=== PATIENT | male | born 1990 | race Asian ===

== ENCOUNTER 2017-05-14 15:17 | Outpatient (CLI) | payer MEDICAID ==
[2017-05-14 19:13] LABS: BASOPHILS % (AUTO) 0.4 %; EOSINOPHILS # (AUTO) 0.2 10^3/uL (0.0-0.7); EOSINOPHILS % (AUTO) 1.6 %; HGB - HEMOGLOBIN 14.4 g/dL (14.0-18.0); LYMPHOCYTES # (AUTO) 2.2 10^3/uL (1.5-3.5); LYMPHOCYTES % (AUTO) 19.8 %; MEAN CORPUSCULAR HEMOGLOBIN 30.2 pg (27.0-31.0); MEAN CORPUSCULAR HGB CONC 32.1 g/dL (32.0-36.0); MEAN PLATELET VOLUME 9.2 fL (7.4-11.4); MONOCYTES # (AUTO) 0.9 10^3/uL (0.0-1.0); MONOCYTES % (AUTO) 7.8 %; NEUTROPHILS # (AUTO) 7.8 10^3/uL (1.5-6.6); NEUTROPHILS % (AUTO) 70.4 %; RED BLOOD COUNT 4.79 10^6/uL (4.70-6.10); RED CELL DISTRIBUTION WIDTH 12.4 % (12.0-15.0); UNCORRECTED WHITE BLOOD COUNT 11.1 x10^3/uL; WHITE BLOOD COUNT 11.1 x10^3/uL (4.8-10.8)
[2017-05-14 19:42] LABS: ALBUMIN/GLOBULIN RATIO 1.4 (1.0-2.2); BILIRUBIN,TOTAL 1.2 mg/dL (0.2-1.0); BUN - BLOOD UREA NITROGEN 18 mg/dL (6-20); CARBON DIOXIDE - CO2 22 mmol/L (21-32); CHLORIDE 105 mmol/L (101-111); CHOL/HDL RATIO 3.4 (<5.0); CHOLESTEROL 148 mg/dL; CREATININE 0.8 mg/dL (0.6-1.2); GFR - MDRD 118 (>89); GLUCOSE 86 mg/dL (70-100); HDL CHOLESTEROL 44 mg/dL; LDL/HDL RATIO 2.1 (<3.6); POTASSIUM 3.7 mmol/L (3.5-5.0); SODIUM 136 mmol/L (135-145); TOTAL PROTEIN 7.3 g/dL (6.7-8.2); TRIGLYCERIDES 57 mg/dL; VLDL CHOLESTEROL 11 mg/dL
== END 2017-05-14 15:18 | disposition home or self-care (01) ==
LOC: LAB.N 15:17
PROVIDERS: ATTEND Nurse Practitioner Gerontology
DX: Z13.9 Encounter for screening, unspecified (principal)
CPT/HCPCS: 36415; 80053; 80061; 84443; 85025

== ENCOUNTER 2019-09-17 16:10 | Emergency (ER) | payer BC, MEDICAID ==
[2019-09-17 16:32] VITALS: BP 140/82
--- NOTE | 2019-09-17 16:52 | ED Physician Documentation ---
History of Present Illness - Stated complaint Stated Complaint: SHEPHERD,COUGH,DIZZINESS - Chief complaint Chief Complaint: General - History obtained from History obtained from: Patient (29-year-old young man presented with viral illness with occasional cough congestion mild dizziness. No objective fever chill. He had similar episode about 1 month ago and recovered well. In emergency room patient is alert and oriented. No respiratory distress. No nausea no vomiting.) - History of Present Illness Timing: How many days ago (3) Review of Systems Ten Systems: 10 systems reviewed and negative Constitutional: reports: Reviewed and negative Eyes: reports: Reviewed and negative Ears: reports: Reviewed and negative Nose: reports: Reviewed and negative Throat: reports: Reviewed and negative Cardiac: reports: Reviewed and negative Respiratory: reports: Cough, Reviewed and negative GI: reports: Reviewed and negative : reports: Reviewed and negative Skin: reports: Reviewed and negative Musculoskeletal: reports: Reviewed and negative Neurologic: reports: Reviewed and negative Psychiatric: reports: Reviewed and negative Endocrine: reports: Reviewed and negative Immunocompromised: reports: Reviewed and negative PD PAST MEDICAL HISTORY - Past Medical History Cardiovascular: Hypertension Respiratory: None Neuro: None Endocrine/Autoimmune: None GI: None : None HEENT: None Psych: None Musculoskeletal: None Derm: Eczema - Past Surgical History Past Surgical History: No - Allergies Allergies/Adverse Reactions: Allergies Allergy/AdvReac Type Severity Reaction Status Date / Time Sulfa (Sulfonamide Allergy Unknown Verified 09/17/19 16:25 Antibiotics) - Social History Does the pt smoke?: No Smoking Status: Never smoker Does the pt drink ETOH?: Yes Does the pt have substance abuse?: No - Immunizations Immunizations are current?: Yes - POLST Patient has POLST: No PD ED PE NORMAL - Vitals Vital signs reviewed: Yes - General General: Alert and oriented X 3, No acute distress - HEENT HEENT: Atraumatic, PERRL, EOMI - Neck Neck: Supple, no meningeal sign - Cardiac Cardiac: RRR, No murmur - Respiratory Respiratory: No respiratory distress, Clear bilaterally - Abdomen Abdomen: Normal bowel sounds, Soft, Non tender, Non distended - Derm Derm: Warm and dry - Extremities Extremities: No deformity - Neuro Neuro: Alert and oriented X 3 - Psych Psych: Normal mood, Normal affect Results - Vitals Vitals: Vital Signs - 24 hr 09/17/19 09/17/19 16:26 16:32 Temperature 36.7 C Heart Rate 89 85 Respiratory 20 18 Rate Blood Pressure 145/85 H 140/82 H O2 Saturation 96 96 Oxygen O2 Source Room air PD MEDICAL DECISION MAKING - ED course Complexity details: d/w patient ED course: Patient is given impression of viral URI, asked to gargle salt water for sore throat Tylenol for the headache. Follow-up primary care doctor in the next 5 to 7 days. Departure - Departure Disposition: 01 Home, Self Care Clinical Impression: Viral illness Condition: Stable Instructions: ED Viral Syndrome Comments: Take Tylenol every 6 hours as needed for the headache. Follow-up with your [place] [facility] doctor in5 to 7 days. Forms: Activity restrictions
== END 2019-09-17 17:06 | disposition home or self-care (01) ==
LOC: ED 16:10
DX: J06.9 Acute upper respiratory infection, unspecified (principal); J02.9 Acute pharyngitis, unspecified; R51 Headache; I10 Essential (primary) hypertension
CPT/HCPCS: 99282; 99283

== ENCOUNTER 2020-03-04 21:41 | Emergency (ER) | payer BC ==
[2020-03-04] MEDS ORDERED: KETOROLAC 60 MG/2 ML VIAL IM STA (23:01)
--- NOTE | 2020-03-04 23:03 | ED Physician Documentation ---
History of Present Illness - Stated complaint Stated Complaint: RIB PX - Chief complaint Chief Complaint: Trauma Ch/Bk - History obtained from History obtained from: Patient - Additonal information Additional information: Patient comes emergency department complaining of left rib pain after taking a fall from his long board 2 days ago and landing on his left side. He states that he blocked his fall with his left arm and elbow, but that his elbow jabbed into his ribs when he hit the ground. Patient's been having pain under his left breast for especially the last day after playing tennis with his brother. He states that he had some pain before that but that playing tennis made it worse. Patient states that when he coughs or takes a deep breath or moves certain ways, he notices the pain more. Patient was not injured in any other way. No blood in his urine pain throughout his rib cage or back. No other complaints at this time. Review of Systems Ten Systems: 10 systems reviewed and negative Constitutional: reports: Reviewed and negative Eyes: reports: Reviewed and negative Ears: reports: Reviewed and negative Nose: reports: Reviewed and negative Throat: reports: Reviewed and negative Cardiac: reports: Chest pain / pressure Respiratory: reports: Reviewed and negative GI: reports: Reviewed and negative : reports: Reviewed and negative Skin: reports: Reviewed and negative Musculoskeletal: reports: Reviewed and negative Neurologic: reports: Reviewed and negative Psychiatric: reports: Reviewed and negative Endocrine: reports: Reviewed and negative Immunocompromised: reports: Reviewed and negative PD PAST MEDICAL HISTORY - Past Medical History Cardiovascular: Hypertension Respiratory: None Neuro: None Endocrine/Autoimmune: None GI: None : None HEENT: None Psych: None Musculoskeletal: None Derm: Eczema - Past Surgical History Past Surgical History: No - Present Medications Home Medications: Ambulatory Orders Medication Instructions Recorded Confirmed Hydrocodone/Acetaminophen 1 - 2 each PO Q6H PRN #14 tablet 03/05/20 [Hydrocodon-Acetaminophen 5-325] - Allergies Allergies/Adverse Reactions: Allergies Allergy/AdvReac Type Severity Reaction Status Date / Time Sulfa (Sulfonamide Allergy Unknown Verified 03/04/20 21:51 Antibiotics) - Social History Does the pt smoke?: No Smoking Status: Never smoker Does the pt drink ETOH?: Yes Does the pt have substance abuse?: No - Immunizations Immunizations are current?: Yes - POLST Patient has POLST: No PD ED PE NORMAL - Vitals Vital signs reviewed: Yes - General General: Alert and oriented X 3, No acute distress - HEENT HEENT: Atraumatic, PERRL, EOMI, Moist mucous membranes - Neck Neck: Supple, no meningeal sign - Cardiac Cardiac: RRR, No murmur - Respiratory Respiratory: No respiratory distress, Clear bilaterally, Other (Reproducible chest pain with palpation of fifth and sixth intercostal spaces anterolaterally on the left.) - Abdomen Abdomen: Soft, Non tender, Non distended - Back Back: No CVA TTP, No spinal TTP - Derm Derm: Normal color, Warm and dry, No rash - Extremities Extremities: No deformity - Neuro Neuro: Alert and oriented X 3 - Psych Psych: Normal mood, Normal affect Results - Vitals Vitals: Oxygen O2 Source Room air - Rads (name of study) ribs/chest xr Radiology: Prelim report reviewed, EMP read indepedently, See rad report (nondisplaced 7th rib fx) PD MEDICAL DECISION MAKING - ED course Complexity details: reviewed results, re-evaluated patient, considered differential, d/w patient ED course: Patient was given a dose of Toradol in the emergency department and worked up with x-rays of his left ribs and chest, upon which I appreciated a nondisplaced 7th rib fx. Preliminary radiology read did note this, also. We have discussed home management of the sx, as well as the usual indications for return. Departure - Departure Disposition: 01 Home, Self Care Clinical Impression: Fracture of rib Qualifiers: Encounter type: initial encounter Rib fracture type: single rib Fracture type: closed Laterality: left Qualified Code(s): S22.32XA - Fracture of one rib, left side, initial encounter for closed fracture Condition: Stable Instructions: ED Fx Rib Prescriptions: Hydrocodone/Acetaminophen [Hydrocodon-Acetaminophen 5-325] 1 - 2 each PO Q6H PRN #14 tablet PRN Reason: pain Comments: Your x-ray shows a broken rib, but no injury to your lung. This will heal on its own in the next several weeks. Please avoid any activities that strain your chest wall for at least the next 4 weeks. Discharge Date/Time: 03/05/20 00:30
[2020-03-05] MEDS ORDERED: HYDROcod/ACET 5/325 Prepack 4 PO STA (00:10)
[2020-03-05 00:23] VITALS: BP 152/95
--- NOTE | 2020-03-05 08:15 | XRAY Report ---
PROCEDURE: Ribs w/PA Chest LT INDICATIONS: injury L ribs, pain TECHNIQUE: 2 views of the left ribs were acquired, along with a single view chest. COMPARISON: None FINDINGS: Surgical changes and devices: None. Bones and chest wall: No fractures or dislocations. No suspicious bony lesions. Overlying soft tis sues appear unremarkable. Lungs and pleura: No pleural effusions or pneumothorax. Lungs appear clear. Mediastinum: Mediastinal contours appear normal. Heart size is normal. IMPRESSION: Reduced inspiratory volume, no fracture found. No pneumothorax identified. Please note that the detec tion of acute fractures by plain film is limited and may be improved by obtaining delayed plain films in several days if clinically warranted. Reviewed by: Osman Chatterjee MD on 03/05/2020 8:13 AM PDT Approved by: Osman Chatterjee MD on 03/05/2020 8:13 AM PDT Station ID: [id number]
== END 2020-03-05 00:30 | disposition home or self-care (01) ==
LOC: ED 21:41
DX: S22.32XA Fracture of one rib, left side, initial encounter for closed fracture (principal); V00.131A Fall from skateboard, initial encounter; Y93.51 Activity, roller skating (inline) and skateboarding
CPT/HCPCS: 96372; 99283; 99284

== ENCOUNTER 2022-09-28 19:08 | Emergency (ER) | payer BC ==
[2022-09-28 19:19] VITALS: BP 152/93
--- NOTE | 2022-09-28 19:45 | ED Physician Documentation ---
PD HPI UPPER EXT INJURY - Stated complaint Stated Complaint: THUMB INJURY - Chief complaint Chief Complaint: Laceration - History obtained from History obtained from: Patient (Right-handed gentleman who is up-to-date on tetanus cut his right thumb with a mandolin slicer at home just prior to arrival with significant bleeding.) PD PAST MEDICAL HISTORY - Past Medical History Cardiovascular: Hypertension Respiratory: None Neuro: None Endocrine/Autoimmune: None GI: None : None HEENT: None Psych: None Musculoskeletal: None Derm: Eczema - Past Surgical History Past Surgical History: No - Present Medications Home Medications: Ambulatory Orders Medication Instructions Recorded Confirmed Hydrocodone/Acetaminophen 1 - 2 each PO Q6H PRN #14 tablet 03/05/20 [Hydrocodon-Acetaminophen 5-325] - Allergies Allergies/Adverse Reactions: Allergies Allergy/AdvReac Type Severity Reaction Status Date / Time Sulfa (Sulfonamide Allergy Unknown Verified 03/04/20 21:51 Antibiotics) - Social History Does the pt smoke?: No Smoking Status: Never smoker Does the pt drink ETOH?: Yes Does the pt have substance abuse?: No - Immunizations Immunizations are current?: Yes - POLST Patient has POLST: No PD ED PE NORMAL - Vitals Vital signs reviewed: Yes - General General: Alert and oriented X 3, No acute distress - Derm Derm: Normal color, Warm and dry - Extremities Extremities: Other (On the radial side of the distal right thumb there is a large complete tissue avulsion measuring 2 x 1 cm with active bleeding.) - Neuro Neuro: Alert and oriented X 3, Normal speech Results - Vitals Vitals: Vital Signs - 24 hr 09/28/22 19:17 Temperature 36.4 C L Heart Rate 73 Respiratory 17 Rate Blood Pressure 152/93 H O2 Saturation 96 Oxygen O2 Source Room air Procedures - General procedure General procedure: Hemostatic control of right thumb: A digital block was done with 1% lidocaine in standard fashion with excellent anesthesia. A finger tourniquet was placed. There were several areas of brisk bleeding that required electrocautery, then Gelfoam and tube gauze was placed with a pressure dressing. PD Medical Decision Making - ED course ED course: He has a very large tissue avulsion from the right thumb. It was briskly and actively bleeding even with a pressure dressing on. As such I did have to cauterize a few places and then placed Gelfoam and tube gauze with hemostasis. He was observed for 20 minutes to ensure hemostasis. Departure - Departure Disposition: 01 Home, Self Care Clinical Impression: Fingertip avulsion Condition: Good Record reviewed to determine appropriate education?: Yes Instructions: ED Laceration Amputation Finger Tip Open Tx Follow-Up: Blane Barrow MD [Physician No Access] - Within 1 week Comments: As discussed, this wound is large enough that you may end up requiring a skin graft. In the meantime you can keep the current dressing on until Sunday morning. At which point you really should not have any more significant bleeding. You can wash gingerly with soap and water and then apply bacitracin ointment which is available [id number] and a gauze wrap. You should continue to do this until you follow-up with a hand surgeon, call his office tomorrow for an appointment next week. Return for new or worsening symptoms. Forms: Activity restrictions
== END 2022-09-28 20:14 | disposition home or self-care (01) ==
LOC: ED 19:08
DX: S61.001A Unspecified open wound of right thumb without damage to nail, initial encounter (principal); W27.4XXA Contact with kitchen utensil, initial encounter; Y93.G1 Activity, food preparation and clean up; Y92.009 Unspecified place in unspecified non-institutional (private) residence as the place of occurrence of the external cause
CPT/HCPCS: 64450; 99283